=== PATIENT | male | born 1950 | race Caucasian/White ===

== ENCOUNTER 2019-06-09 19:42 | Emergency (ER) | payer MEDICARE, BC ==
[~2019-06-09] VITALS: Ht 172.7 cm; Wt 74.8 kg
[2019-06-09] MEDS ORDERED: FEBU40TA PO (19:52)
[2019-06-09] MEDS ORDERED: OLME20TA13 PO (19:52)
[2019-06-09] MEDS ORDERED: IV NORMAL SALINE 1000 ML BAG IV ONE (20:30)
[2019-06-09 20:33] LABS: BASOPHILS # (AUTO) 0.1 K/uL (0.0-8.0); BASOPHILS % (AUTO) 1.4 % (0.0-2.0); EOSINOPHILS # (AUTO) 0.2 K/uL (0.0-0.7); EOSINOPHILS % (AUTO) 3.5 % (0.0-7.0); HEMATOCRIT 39.8 % (36.7-47.1); HEMOGLOBIN 13.1 g/dL (12.5-16.3); LYMPHOCYTES # (AUTO) 1.7 K/uL (20.0-40.0); LYMPHOCYTES % (AUTO) 37.7 % (20.5-51.5); MEAN CORPUSCULAR HEMOGLOBIN 29.1 uug (23.8-33.4); MEAN CORPUSCULAR HGB CONC 33 g/dL (32.5-36.3); MEAN CORPUSCULAR VOLUME 88.4 fL (73.0-96.2); MONOCYTES # (AUTO) 0.3 K/uL (2.0-10.0); MONOCYTES % (AUTO) 7.6 % (0.0-11.0); NEUTROPHILS # (AUTO) 2.2 K/uL (1.8-8.9); NEUTROPHILS % (AUTO) 49.8 % (38.5-71.5); PLATELET COUNT (AUTO) 132 K/uL (152-348); WHITE BLOOD COUNT (AUTO) 4.5 K/uL (3.6-10.2)
[2019-06-09 20:42] LABS: CREATININE 1.2 mg/dL (0.6-1.3); POTASSIUM 4.4 mmol/L (3.5-5.1)
--- NOTE | 2019-06-09 20:44 | NUR ---
Pt went down to radiology dept. for CT scan. No acute distress noted.
[2019-06-09 20:48] LABS: BILIRUBIN,DIRECT 0.1 mg/dL (0.0-0.2); BILIRUBIN,TOTAL 0.5 mg/dL (0.2-1.0); TOTAL PROTEIN, SERUM 7.1 g/dL (6.4-8.2)
--- NOTE | 2019-06-09 20:57 | NUR ---
Pt back from radiology dept, placed back to room 2B. No acute distress noted. Family member at bedside.
--- NOTE | 2019-06-09 22:22 | NUR ---
IV removed. Catheter intact and site benign. Pressure and 4x4 gauze applied to site. No bleeding noted.
--- NOTE | 2019-06-09 22:24 | NUR ---
Patient discharged to home in stable conditon. Written and verbal after care instructions given. Patient verbalizes understanding of instructions. Pt ambulated out of ER in stable gait with . Appears in no apparent distress. Vital signs stable. Respirations even + unlabored. Pt denies any julio at this time.
[2019-06-09 23:09] VITALS: BP 139/66
== END 2019-06-09 23:11 | disposition home or self-care (01) ==
LOC: ER 19:42
DX: R10.13 Epigastric pain (principal); R42 Dizziness and giddiness; Z79.899 Other long term (current) drug therapy
CPT/HCPCS: 36415; 70030-TC; 83690; 85025; 85730; 93005; A4663; J7030

== ENCOUNTER 2022-10-23 00:45 | Emergency (ER) | payer MEDICARE, BC ==
[~2022-10-23] VITALS: Ht 172.7 cm; Wt 70.3 kg
[~2022-10-23 00:45] MED LIST: FEBU40TA PO; OLME20TA13 PO
[2022-10-23 01:31] LABS: HEMATOCRIT 37.4 % (36.7-47.1); MEAN CORPUSCULAR HEMOGLOBIN 30.2 uug (23.8-33.4); MEAN CORPUSCULAR VOLUME 90.6 fL (73.0-96.2); PLATELET COUNT (AUTO) 138 K/uL (152-348)
[2022-10-23 01:47] LABS: CARBON DIOXIDE 31 mmol/L (21-32); CHLORIDE 106 mmol/L (98-107); CREATININE 1.6 mg/dL (0.6-1.3); GLUCOSE 110 mg/dL (74-106); POTASSIUM 4.7 mmol/L (3.5-5.1); UREA NITROGEN, BLOOD 32 mg/dL (7-18)
[2022-10-23 02:00] LABS: ALANINE AMINOTRANSFERASE 23 U/L (16-63); ALKALINE PHOSPHATASE 36 U/L (50-136); ASPARTATE AMINOTRANSFERASE 16 U/L (15-37); BILIRUBIN,DIRECT 0.1 mg/dL (0.0-0.2); BILIRUBIN,TOTAL 0.4 mg/dL (0.2-1.0); TOTAL PROTEIN, SERUM 6.3 g/dL (6.4-8.2)
[2022-10-23] MEDS ORDERED: ROSU10TA2 PO (02:44)
[2022-10-23] MEDS ORDERED: FOLI1TAB94 PO (02:44)
[2022-10-23] MEDS ORDERED: TELM40TA2 PO (02:44)
[2022-10-23] MEDS ORDERED: ASPIRIN 81 MG TAB.CHEW PO ONE (07:00)
[2022-10-23] MEDS ORDERED: FAMOTIDINE 20 MG TABLET PO ONE (07:00)
[2022-10-23] MEDS ORDERED: FAMOTIDINE 20 MG TABLET ONE (07:13)
[2022-10-23] MEDS ORDERED: ASPIRIN 81 MG TAB.CHEW ONE (07:13)
--- NOTE | 2022-10-23 08:39 | NUR ---
IV removed. Catheter intact and site benign. Pressure and 4x4 gauze applied to site. No bleeding noted.
--- NOTE | 2022-10-23 08:43 | NUR ---
Patient does not wish to proceed with medical care recommended by ( Rima ). Patient given information related to possible complications, up to and including , which could occur as a result of leaving the hospital at this time. Patient verbalizes understanding of risks involved due to leaving against medical advice. Patient has signed AMA form. WITH TAKING PATIENT HOME
[2022-10-23 08:49] VITALS: BP 138/75
== END 2022-10-23 08:50 | disposition home or self-care (01) ==
LOC: ER 00:59
DX: R07.2 Precordial pain (principal); I10 Essential (primary) hypertension; Z20.822 Contact with and (suspected) exposure to COVID-19; N28.9 Disorder of kidney and ureter, unspecified; Z53.29 Procedure and treatment not carried out because of patient's decision for other reasons; M10.9 Gout, unspecified; Z79.899 Other long term (current) drug therapy
CPT/HCPCS: 36415; 71045; 84484; 85025; 93005; A4663